=== PATIENT | female | born 1995 | race Caucasian/White ===

== ENCOUNTER 2020-06-02 15:55 | Emergency (ER) | payer OTHER, SELFPAY ==
--- NOTE | ~2020-06-02 | XR_ITS ---
EXAMINATION: XR finger 3rd LT min 2V DATE: 06/02/2020 16:33 INDICATION: Left hand third digit pain. TECHNIQUE: 3 views of left hand third digit were obtained. COMPARISON: None. FINDINGS: There is hyperextension of third distal interphalangeal joint. No fracture. Joint spaces ar e normal. IMPRESSION: 1. No fracture. Reviewed, dictated and finalized at location A. TRICIAN SUPERVISOR IMPRESSION: 1. No fracture.
[2020-06-02 15:59] VITALS: BP 130/58; PULSE 71; RESP 15; TEMP 36.6; O2SAT 100
[2020-06-02 18:24] VITALS: BP 128/56; PULSE 70; RESP 16; O2SAT 100
--- NOTE | 2020-06-02 20:50 | ED.GENADULT ---
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 Patient states she cannot recall a direct incident of injury. Patient has full range of motion to her finger but reports pain with range of motion. Patient denies any other injuries. Related Data Allergies Allergy/AdvReac Type Severity Reaction Status Date / Time No Known Allergies Allergy Verified 06/02/20 16:02 Review of Systems Review of Systems: Narrative: CONSTITUTIONAL: Denies fever, chills, or sweats. EYES: Denies visual changes, redness, or discharge. ENT: Denies rhinorrhea, congestion, sore throat, or otalgia. CARDIOVASCULAR: Denies chest pain, palpitations, or edema. RESPIRATORY: Denies cough or dyspnea. GASTROINTESTINAL: Denies abdominal pain, nausea, vomiting, or diarrhea. GENITOURINARY: Denies dysuria or hematuria. SKIN: Ecchymosis to the dorsal aspect of her left middle finger denies rash or itching. MUSCULOSKELETAL: Denies back pain, joint pain, or myalgia. NEUROLOGIC: Denies headache, numbness, dizziness, or weakness. PSYCHIATRIC: Denies anxiety or depression. PMFSH Social History Social History Smoking status: Never smoker Alcohol intake: never Gender identity (if verbalized by the patient): Female Exam Narrative: Exam Narrative: GENERAL: Well-appearing, well-nourished, and in no acute distress. HEAD: Normocephalic, atraumatic. EYES: PERRLA and EOMI. NECK: Supple. No adenopathy or masses. CHEST: Clear to auscultation. No respiratory distress. No wheezes rales or rhonchi HEART: Regular rate and rhythm. EXTREMITIES: Bruising to the dorsal aspect of the left middle finger. Range of motion intact. No bony tenderness. Normal range of motion. No edema. SKIN: Warm, dry, no rash. NEURO: No focal deficits. Alert and oriented x3. PSYCH: Normal mood and affect. Course Vital Signs Vital signs: Vital Signs Temperature 97.9 F 06/02/20 15:59 Pulse Rate 71 06/02/20 15:59 Respiratory Rate 15 06/02/20 15:59 Blood Pressure 130/58 L 06/02/20 15:59 Pulse Oximetry 100 06/02/20 15:59 Temperature 97.9 F 06/02/20 15:59 Pulse Rate 70 06/02/20 18:24 Respiratory Rate 16 06/02/20 18:24 Blood Pressure 128/56 L 06/02/20 18:24 Pulse Oximetry 100 06/02/20 18:24 Medical Decision Making MDM Narrative Medical decision making narrative: There is no sign of fracture. Patient will be treated his finger sprain. Patient instructed to wear finger splint when she is moving to avoid excessive use, but when she is at rest to remove the splint to avoid stiffness. Patient should've follow-up with her primary care for reevaluation if symptoms persist. Patient instructed to return to emergency department if she has any emergent symptoms. Differential Diagnosis Differential Diagnosis: Raynaud, abscess, fracture, sprain, strain Vital Signs Vital Signs: Vital Signs Temperature 97.9 F 06/02/20 15:59 Pulse Rate 71 06/02/20 15:59 Respiratory Rate 15 06/02/20 15:59 Blood Pressure 130/58 L 06/02/20 15:59 Pulse Oximetry 100 06/02/20 15:59 Temperature 97.9 F 06/02/20 15:59 Pulse Rate 70 06/02/20 18:24 Respiratory Rate 16 06/02/20 18:24 Blood Pressure 128/56 L 06/02/20 18:24 Pulse Oximetry 100 06/02/20 18:24 Imaging Data Radiologist's impression: ITS Impressions Finger X-Ray 06/02/20 16:40 IMPRESSION: 1. No fracture. Discharge Plan Discharge Clinical Impression: Other sprain of left middle finger, initial encounter Patient Disposition: Home, Self-Care Condition: Stable Instructions: Antibiotic Form, Finger Spr
== END 2020-06-02 18:24 | disposition home or self-care (01) ==
PROVIDERS: Emergency Provider Emergency Medicine; PCP Family Medicine
DX: S63.693A Other sprain of left middle finger, initial encounter (principal); X58.XXXA Exposure to other specified factors, initial encounter
CPT/HCPCS: 29130; 73140; 99283

== ENCOUNTER 2021-02-14 14:56 | Emergency (ER) | payer OTHER, SELFPAY ==
--- NOTE | ~2021-02-14 | US_ITS ---
EXAMINATION: US OB <= 14 weeks fetus EXAM DATE: 02/14/2021 16:49 INDICATION: Nausea and vomiting, 8 weeks 1st trimester. TECHNIQUE: Pelvic obstetrical transabdominal sonogram was performed by a technologist. There are mu ltiple grayscale and Doppler images available for interpretation. There are no earlier studies of th is gestation for comparison. FINDINGS: Uterus measures 9.3 x 6.7 x 7.2 cm. There is intrauterine gestation sac. pole with heart rate confirmed at 159 beats per minute. The 1.4 cm crown-rump length corresponds to estimated gestational age by ultrasound of 7 weeks 4 days, LACY 09/29/2021. Yolk sac is identified. There is n o sonographic evidence of subchorionic hemorrhage. Ovaries not identified. IMPRESSION: Early live intrauterine gestation, age by ultrasound 7 weeks 4 days. Reviewed, dictated and finalized at location A. IMPRESSION: Early live intrauterine gestation, age by ultrasound 7 weeks 4 days .
[2021-02-14 15:07] VITALS: BP 120/65; PULSE 86; RESP 18; TEMP 36.8; O2SAT 100
[2021-02-14 15:46] LABS: Basophils Percent Auto 0.3 % (0.2-1.2); Eosinophils Percent Auto 0.2 % (0-4.4); Hemoglobin 11.3 g/dL (12.0-15.0); Immature Granulocyte Absolute 0.05 K/mm3 (0.00-0.031); Immature Granulocyte Percent A 0.4 % (0-0.5); Lymphocytes Absolute Auto 1.86 K/mm3 (0.9-3.2); Lymphocytes Percent Auto 14.4 % (18.3-44.2); Mean Corpuscular HGB Conc 33.2 g/dl (32-36); Mean Corpuscular Hemoglobin 29.1 pg (26-34); Mean Corpuscular Volume 87.6 fl (80-100); Mean Platelet Volume 10.8 fl (7.4-10.4); Monocytes Absolute Auto 1.2 K/mm3 (0.1-0.6); Monocytes Percent Auto 8.9 % (2.6-8.5); Neutrophils Absolute Auto 9.8 K/mm3 (1.3-6.7); Neutrophils Percent Auto 75.8 % (45.5-73.1); Platelet Count Result 230 k/mm3 (150-375); Red Blood Count 3.88 M/mm3 (4.2-5.4); White Blood Count 12.9 K/mm3 (4.5-10.0)
[2021-02-14 16:06] LABS: Alanine Aminotransferase 25 U/L (4-35); Albumin Level 4.6 g/dL (3.5-5.1); Alkaline Phosphatase 83 U/L (38-126); Anion Gap 10 mmol/L (8-16); Aspartate Amino Transferase 23 U/L (14-36); Bilirubin,Total 0.3 mg/dL (0.2-1.3); Blood Urea Nitrogen 8 mg/dL (7-17); Calcium 9.2 mg/dL (8.4-10.2); Carbon Dioxide 21 mmol/L (22-30); Chloride 102 mmol/L (98-107); Estimated CRCL calculation 106 ml/min; Estimated Glomerular Filt Rate > 60; Glucose 74 mg/dL (65-110); Lipase 73 U/L (23-300); Potassium 3.8 mmol/L (3.4-5.0); Sodium 133 mmol/L (137-145)
--- NOTE | 2021-02-14 16:06 | ED.NAVMDI ---
HPI - Nausea/Vomiting/Diarrhea General Chief complaint: Nausea/Vomiting/Diarrhea <Nancy Jeff PA-C - Last Filed: 02/14/21 18:13> Stated complaint: 8 WKS PREG, VOMITING <Nancy Jeff PA-C - Last Filed: 02/14/21 18:13> Time Seen by Provider: 02/14/21 15:28 <Nancy Jeff PA-C - Last Filed: 02/14/21 18:13> Source: patient <Nancy Jeff PA-C - Last Filed: 02/14/21 18:13> Mode of arrival: ambulatory <Nnacy Jeff PA-C - Last Filed: 02/14/21 18:13> Limitations: no limitations <Nancy Jeff PA-C - Last Filed: 02/14/21 18:13> History of Present Illness HPI Narrative: This is a 25 year old , that presents to the ER for nausea and vomiting x3 weeks. Reports she is currently 8 weeks . Her OB is Dr. Geovani Bright, she has not seen him yet this . She has had a lot of trouble with morning sickness this . Reports she can hardly keep anything down. Denies fever, pelvic cramping, vaginal bleeding, or dysuria. <Nancy Jeff PA-C - Last Filed: 02/14/21 18:13> Related Data Allergies/Adverse reactions: Allergies Allergy/AdvReac Type Severity Reaction Status Date / Time No Known Allergies Allergy Verified 06/02/20 16:02 <Nancy Jeff PA-C - Last Filed: 02/14/21 18:13> Review of Systems Review of Systems: CONSTITUTIONAL: Denies fever GASTROINTESTINAL: Reports nausea and vomiting. Denies abdominal pain GENITOURINARY: Denies dysuria or hematuria. <Nancy Jeff PA-C - Last Filed: 02/14/21 18:13> All systems reviewed & are unremarkable except as noted in HPI and below <Nancy Jeff PA-C - Last Filed: 02/14/21 18:13> [facility] Past Medical History Medical History: Medical History (Updated 02/14/21 @ 18:12 by Nancy Jeff PA-C) No active medical problems <Nancy Jeff PA-C - Last Filed: 02/14/21 18:13> Social History Social History: Social History Smoking status: Never smoker Alcohol intake: never Gender identity (if verbalized by the patient): Female <Nancy Jeff PA-C - Last Filed: 02/14/21 18:13> Exam Narrative: GENERAL: Well-appearing, well-nourished, and in no acute distress. HEAD: Normocephalic, atraumatic. EYES: EOMI. CHEST: Clear to auscultation. No respiratory distress. No wheezes rales or rhonchi HEART: Regular rate and rhythm. No murmur heard. Normal peripheral pulses. ABDOMEN: Soft, nontender, nondistended, normal active bowel sounds. EXTREMITIES: Normal range of motion. No edema. SKIN: Warm, dry, no rash. NEURO: No focal deficits. Alert and oriented x3. PSYCH: Normal mood and affect <Nancy Jeff PA-C - Last Filed: 02/14/21 18:13> Course RAT TRAPPER/PA Physician Supervision I did not see this patient nor was the care plan discussed with me. I was available for evaluation and consultation, I agree with the documentation as above <Josh Mccollum MD - Last Filed: 02/14/21 20:26> Consultations Consultation #1: Spoke with Dr. Juan about patient and work-up who will follow up in clinic. <Nancy Jeff PA-C - Last Filed: 02/14/21 18:13> Date: 02/14/21 <Nancy Jeff PA-C - Last Filed: 02/14/21 18:13> Time: 18:11 <Nancy Jeff PA-C - Last Filed: 02/14/21 18:13> Vital Signs Vital signs: Vital Signs Temperature 36.8 C 02/14/21 15:07 Pulse Rate 86 02/14/21 15:07 Respiratory Rate 18 02/14/21 15:07 Blood Pressure 120/65 02/14/21 15:07 Pulse Oximetry 100 02/14/21 15:07 Temperature 36.8 C 02/14/21 15:07 Pulse Rate 86 02/14/21 15:07 Respiratory Rate 18 02/14/21 15:07 Blood Pressure 120/65 02/14/21 15:07 Pulse Oximetry 100 02/14/21 15:07 <Nancy Jeff PA-C - Last Filed: 02/14/21 18:13> Vital Signs Temperature 36.8 C 02/14/21 15:07 Pulse Rate 86 02/14/21 15:07 Respiratory Rate 18 02/14/21 15:07 Blood Pressure 120/65 02/14/21 15:07 Pulse Oximetry 100 02/14/21 15:07 Temp
[2021-02-14 16:22] LABS: Add Urine Microscopic? YES; Appearance Urine Clear (Clear); Bacteria Urine Trace /hpf; Bilirubin Urine Negative (Negative); Color Urine Yellow (Yellow); Glucose Urine UA Negative (Negative); Ketones Urine Trace mg/dL (Negative); Leukocyte Esterase Ur 2+ LEU/UL (Negative); Mucus Urine Few /lpf; Nitrate Urine Negative (Negative); Protein Urine 1+ mg/dL (Negative); Specific Grav Ur 1.024 (1.001-1.035); Squamous Epithelial Cell Urine Many /hpf (Few)
[2021-02-14 16:24] LABS: Blood Urine Negative (Negative)
[2021-02-14] MEDS: SODIUM CHLORIDE 0.9% IV 1,000 ML 999 ML IV CONT (17:00)
[2021-02-14] MEDS: diphenhydrAMINE HCl INJ 50 MG/ML VIAL 25 MG IV PUSH (17:01)
[2021-02-14] MEDS: METOCLOPRAMIDE HCL INJ 10 MG/2 ML VIAL IV PUSH (17:02)
== END 2021-02-14 18:45 | disposition home or self-care (01) ==
PROVIDERS: Physician Assistant; Emergency Provider Emergency Medicine; PCP Family Medicine
DX: O21.9 Vomiting of pregnancy, unspecified (principal); Z3A.01 Less than 8 weeks gestation of pregnancy; R82.998 Other abnormal findings in urine
CPT/HCPCS: 36415; 76801; 80053; 81001; 81025; 83690; 84702; 85025; 87086; 96361; 96374; 96375; 99284; J1200; J2765; J7030

== ENCOUNTER 2021-07-13 10:32 | Observation (INO) | payer OTHER, SELFPAY ==
[2021-07-13 10:45] VITALS: BMI 25.7
[2021-07-13 10:53] VITALS: BP 109/60; PULSE 97
[2021-07-13 11:00] VITALS: BP 111/60; PULSE 91
[2021-07-13 11:13] LABS: Add Urine Microscopic? YES; Appearance Urine Cloudy (Clear); Bacteria Urine 1+ /hpf; Bilirubin Urine Negative (Negative); Blood Urine Negative (Negative); Color Urine Yellow (Yellow); Glucose Urine UA Negative (Negative); Ketones Urine Negative (Negative); Leukocyte Esterase Ur 2+ LEU/UL (Negative); Mucus Urine Rare /lpf; Nitrate Urine Negative (Negative); Protein Urine Negative (Negative); Squamous Epithelial Cell Urine Many /hpf (Few); Urobilinogen Urine Negative mg/dL (<2.0)
[2021-07-13 11:16] VITALS: BP 100/59; PULSE 76
[2021-07-13 11:30] VITALS: BP 105/59; PULSE 81
[2021-07-13 11:45] VITALS: BP 102/56; PULSE 69
[2021-07-13 12:00] VITALS: BP 107/56; PULSE 81
--- NOTE | 2021-07-13 12:20 | PC.NURSE ---
Dr. Lerner at unit notified pt admission and UA result. Dr. Lerner reviewed strip in unit. okay to discharge.
--- NOTE | 2021-07-13 13:51 | PM.OBTRLD ---
OB - Triage/Final Diagnosis Visit Information Reason for evaluation: threatened labor Comments/Additional reasons for admission: I have assessed the risk for this patient, Evita Kincaid, and determined that she would benefit from observation care. Evaluation Laboratory results: Laboratory Tests 07/13/21 10:58 Urine Color Yellow Urine Appearance Cloudy H Urine pH 6.0 Ur Specific Oriental 1.020 Urine Protein Negative Urine Glucose (UA) Negative Urine Ketones Negative Ur Blood (Man) Negative Urine Nitrate Negative Urine Bilirubin Negative Urine Urobilinogen Negative Leukocyte Esterase Rfl 2+ H Urine RBC 11-20 H Urine WBC 10-15 H Ur Squamous Epith Cells Many H Urine Bacteria 1+ H Urine Mucus Rare Vital signs: Vital Signs - 24 hr 07/13/21 10:53 07/13/21 11:00 07/13/21 11:16 Pulse Rate 97 91 76 Blood Pressure 109/60 111/60 100/59 L 07/13/21 11:30 07/13/21 11:45 07/13/21 12:00 Pulse Rate 81 69 81 Blood Pressure 105/59 L 102/56 L 107/56 L
== END 2021-07-13 12:26 | disposition home or self-care (01) ==
PROVIDERS: Admitting Provider Obstetrics & Gynecology; PCP Family Medicine; Visit Provider Obstetrics & Gynecology
DX: O47.02 False labor before 37 completed weeks of gestation, second trimester (principal); Z3A.29 29 weeks gestation of pregnancy
CPT/HCPCS: 81001; 87086; G0378; G0379

== ENCOUNTER 2021-09-17 06:25 | Inpatient (IN) | payer OTHER, SELFPAY ==
[2021-09-17] VITALS (172 sets, daily range): BP systolic 97–139; BP diastolic 32–99; PULSE 54–116; RESP 16; TEMP 36.7–37.5; O2SAT 95–100; BMI 29.9
--- NOTE | 2021-09-17 06:25 | LDADM ---
This patient, Evita Kincaid, was admitted to Labor/Delivery/Recovery 104 on 09/17/21 at 06:25. Plans for labor, pain management and were discussed with patient. Patient/family oriented to hospital policies and general routines including ID bracelet, bed and alarms, visiting hours, pain management, procedures, bathroom and other care routines, personal items, smoking policy, room service/diet and guest tray routines, infant security routines, and visiting hours. Patient/Family are encouraged to report perceived risks to care and to ask questions if they do not understand what they are told or what they should do. See OBIX for further documentation.
--- NOTE | 2021-09-17 06:59 | PM.IMHP ---
H&P: HPI History of Present Illness Date/Time: 09/17/21 06:59 26-year-old 2 para 1 whose last menstrual period was 12/22/2020, EDC is 09/23/2021, presents at 39 weeks gestation for induction of labor. Her cervix is favorable she has had an unremarkable . She is negative for group B strep risks and benefits reviewed. Chief Complaint: induction of labor at term Review of Systems Review of Systems: All systems reviewed & are unremarkable except as noted in HPI and below PMFSH Past Medical History Medical History No active medical problems Family History Family History Mother Kidney failure Social History Social History Smoking status: Never smoker Alcohol intake: never Substance use: never Gender identity (if verbalized by the patient): Female Spiritual care concerns: No Meds Home Medications and Allergies Home Medications Medication Instructions Recorded Confirmed Type metoclopramide HCl 5 mg PO Q8H #10 tablet 02/14/21 Rx Allergies Allergy/AdvReac Type Severity Reaction Status Date / Time No Known Allergies Allergy Verified 08/24/21 13:26 Vital Signs Vital Signs - 24 hr 09/17/21 06:56 Pulse Rate 99 Blood Pressure 117/86 Exam Const: General: no acute distress Eyes: General: appearance normal, both eyes and all related structures Neck: Neck: supple and no JVD Thyroid: thyroid normal Resp: Effort & Inspection: normal respiratory effort Auscultation: clear to auscultation bilaterally Cardio: Rate: regular rate Rhythm: regular rhythm GI: Inspection: non-distended GI Palp: Yes Soft to palpation, No Tenderness to palpation present (GI) and No Guarding due to palpation present (GI) Auscultation: normal bowel sounds : External Female Exam: normal external appearance Speculum Exam - Vagina: normal appearance of the vagina Speculum Exam - Cervix: Cervical os closed ( Cervix 2/80/1. AROM clear. FHTs were reassuring) Bimanual Exam- Adnexa, other: normal adnexae Skin: General skin exam: no rashes or lesions noted Extrem: General: normal to inspection and no edema Psych: Mental Status: mental status grossly normal Affect: normal affect Assessment and Plan Additional Plan Impression: Term with favorable cervix Plan medical lateral labor. Spontaneous vaginal delivery expected. She has an epidural candidate
[2021-09-17] MEDS: LACTATED RINGERS 1,000 ML 125 ML IV CONT ×3 (07:07→15:06)
[2021-09-17] MEDS: OXYTOCIN 30 UNITS/NS 500 ML 30 UNITS/500 ML BAG IV CONT (07:08)
[2021-09-17 07:14] LABS: Basophils Absolute Auto 0.1 K/mm3 (0.0-0.1); Basophils Percent Auto 0.7 % (0.2-1.2); Eosinophils Absolute Auto 0.1 K/mm3 (0-0.3); Eosinophils Percent Auto 0.9 % (0-4.4); Hemoglobin 11.2 g/dL (12.0-15.0); Immature Granulocyte Absolute 0.29 K/mm3 (0.00-0.031); Immature Granulocyte Percent A 2.1 % (0-0.5); Lymphocytes Percent Auto 18.4 % (18.3-44.2); Mean Corpuscular Hemoglobin 27.7 pg (26-34); Mean Corpuscular Volume 86.6 fl (80-100); Mean Platelet Volume 12.3 fl (7.4-10.4); Monocytes Absolute Auto 1.1 K/mm3 (0.1-0.6); Monocytes Percent Auto 8.4 % (2.6-8.5); Neutrophils Absolute Auto 9.4 K/mm3 (1.3-6.7); Neutrophils Percent Auto 69.5 % (45.5-73.1); Platelet Count Result 211 k/mm3 (150-375); Red Blood Count 4.04 M/mm3 (4.2-5.4); Red Cell Distribution Width 13.8 % (11.5-14.5); White Blood Count 13.6 K/mm3 (4.5-10.0)
--- NOTE | 2021-09-17 10:37 | WPDANESEPPF ---
Anes - Initial Pre Proc Eval Procedure: labor epidural Date/Time: 09/17/21 10:37 Surgeon: Kenroy Bright MD Pre Op Diagnosis: labor pain Pre Op Diagnosis: IOL Patient Data Age: 26 Gender: F Height: 1.63 m Weight: 79 kg Last Vital Signs Temp 36.7 C 09/17/21 09:16 Pulse 66 09/17/21 10:30 BP 108/43 L 09/17/21 10:30 Pulse Ox 99 09/17/21 10:33 Allergies Allergy/AdvReac Type Severity Reaction Status Date / Time No Known Allergies Allergy Verified 08/24/21 13:26 Home Medications Medication Instructions Recorded Confirmed Type prenat.vits,eduarda,eur-cqut-abovy 1 tablet PO DAILY 09/17/21 09/17/21 History [ Vitamin] Laboratory Tests 09/17/21 09/17/21 09/17/21 07:05 07:05 07:05 WBC 13.6 K/mm3 H K/mm3 (4.5-10.0) RBC 4.04 M/mm3 L M/mm3 (4.2-5.4) Hgb 11.2 g/dL L g/dL (12.0-15.0) Hct 35.0 % L % (37.0-47.0) MCV 86.6 fl fl (80-100) MCH 27.7 pg pg (26-34) MCHC 32.0 g/dl g/dl (32-36) RDW 13.8 % % (11.5-14.5) Plt Count 211 k/mm3 k/mm3 (150-375) MPV 12.3 fl H fl (7.4-10.4) Immature Gran % (Auto) 2.1 % H % (0-0.5) Neut % (Auto) 69.5 % % (45.5-73.1) Lymph % (Auto) 18.4 % % (18.3-44.2) Henry % (Auto) 8.4 % % (2.6-8.5) Eos % (Auto) 0.9 % % (0-4.4) Baso % (Auto) 0.7 % % (0.2-1.2) Lymph # (Auto) 2.50 K/mm3 K/mm3 (0.9-3.2) Henry # (Auto) 1.1 K/mm3 H K/mm3 (0.1-0.6) Eos # (Auto) 0.1 K/mm3 K/mm3 (0-0.3) Baso # (Auto) 0.1 K/mm3 K/mm3 (0.0-0.1) Abs Immat Gran (auto) 0.29 K/mm3 H K/mm3 (0.00-0.031) Absolute Neuts (auto) 9.4 K/mm3 H K/mm3 (1.3-6.7) Absolute Nucleated RBC 0.0 K/mm3 K/mm3 (0.0-0.012) Nucleated RBC % 0.0 % % (0.0-0.2) RPR Pending Blood Type O Positive Antibody Screen Negative Patient hx anesthesia problems: none Family hx anesthesia problems: none Results Review: All pre-operative results and documents have been reviewed as part of the pre-operative evaluation. [facility] Past Medical History Medical History No active medical problems Family History Family History Mother Kidney failure Social History Social History Smoking status: Never smoker Alcohol intake: never Substance use: never Gender identity (if verbalized by the patient): Female Spiritual care concerns: No Anes - Eval Final PreProcedure Day of Procedure 09/17/21 10:37 Patient weight: overweight ASA classification: II Anesthesia type and monitoring: regional epidural and standard monitoring Results Review: All pre-operative results and documents have been reviewed as part of the pre-operative evaluation. Informed Consent: The patient's anesthetic plan and its attendant risks and benefits were discussed with the patient/family/POA. Questions were solicited and answers provided to the satisfaction of the patient/family/POA.
--- NOTE | 2021-09-17 12:09 | PM.OBPNLAB ---
Pain Control Date/time seen: 09/17/21 12:09 Pain control: tolerating well Pelvic Exam Dilation (cm): 2 Effacement (%): 80 Amniotic membrane status: Leaking Contractions Monitor mode: Internal
--- NOTE | 2021-09-17 18:15 | P.PCNOB_ITS ---
OB - Delivery Note Procedure Delivery date: 09/17/21 Procedure: mil Induction method: AROM Delivery augmentation: Pitocin Delivery monitor: External FHT and Internal Uterine Route of delivery: Episiotomy description: None Laceration Description: None Quantitative Blood Loss (ml): 59 Disposition: Floor [place] Baby Date of : 09/17/21 Time of : 18:09 Weeks of gestation at delivery: 39 presentation: vertex position: Right Occiput Anterior Placenta delivery description: Spontaneous Cord Vessel Description: 3 Vessels and Clamped/Cut score one minute: 8 score five minutes: 9
[2021-09-17] MEDS: OXYTOCIN 30 UNITS/NS 500 ML 30 UNITS/500 ML BAG 125 UNITS IV CONT (18:42)
[2021-09-17] MEDS: IBUPROFEN 600 MG TABLET PO (19:55)
[2021-09-17] MEDS: WITCH HAZEL 40 PADS 1 PAD TOPICAL (19:55)
[2021-09-17] MEDS: BENZOCAINE 20% AER SPR (*SP) 56 GM CAN 1 SPRAY TOPICAL (19:55)
--- NOTE | 2021-09-17 20:40 | OBPPTRN ---
Patient transferred to post room #291 via wheelchair. Support person present. Oriented to unit, room, information board, rooming in, admission packet and security measures. Patient verbalizes understanding. with patient.
[2021-09-17] MEDS: ACETAMINOPHEN 325 MG TABLET 650 MG PO (23:29)
[2021-09-18] MEDS: IBUPROFEN 600 MG TABLET PO ×3 (03:08→17:04)
[2021-09-18 03:15] VITALS: BP 104/61; PULSE 80; RESP 16; TEMP 36.8; O2SAT 96
[2021-09-18 05:19] LABS: Hematocrit 30.9 % (37.0-47.0); Hemoglobin 9.9 g/dL (12.0-15.0)
[2021-09-18 07:31] LABS: Rapid Plasma Reagin Non-Reactive (NonReactive)
--- NOTE | 2021-09-18 07:45 | PM.OBPNVD ---
OB - PN: Subj Subjective Date/time seen: 09/18/21 07:45 no complaints OB - PN: Obj Data Labs CBC & Chem 7: 09/18/21 03:25 Labs: Laboratory Results - last 24 hr 09/17/21 09/17/21 09/18/21 07:05 07:05 03:25 Hgb 9.9 L Hct 30.9 L RPR Non-reactive Blood Type O Positive Antibody Screen Negative OB - PN A/P Plan day: 1 Plan: routine care Time Spent With Patient Time: Total time spent is greater than 50% in coordination of care (as documented) at patient's floor/unit and/or counseling patient: Time with patient: less than 15 minutes Review of Systems Review of Systems: All systems reviewed & are unremarkable except as noted in HPI and below Exam Const: General: no acute distress Eyes: General: appearance normal, both eyes and all related structures Neck: Neck: supple and no JVD Thyroid: thyroid normal Resp: Effort & Inspection: normal respiratory effort Auscultation: clear to auscultation bilaterally Cardio: Rate: regular rate Rhythm: regular rhythm GI: Inspection: non-distended GI Palp: Yes Soft to palpation, No Tenderness to palpation present (GI) and No Guarding due to palpation present (GI) Auscultation: normal bowel sounds : General: Yes bladder normal to palpation External Female Exam: normal external appearance Speculum Exam - Vagina: normal vaginal discharge and No vaginal bleeding Speculum Exam - Cervix: nontender Bimanual exam- vagina & uterus: bladder normal to palpation and No Cervical tenderness present OB/external & speculum: No vaginal bleeding Skin: General skin exam: no rashes or lesions noted Extrem: General: normal to inspection and no edema Psych: Mental Status: mental status grossly normal Affect: normal affect
[2021-09-18 08:00] VITALS: BP 100/63; PULSE 70; RESP 18; TEMP 36.9
--- NOTE | 2021-09-18 08:01 | PM.DS ---
DS: Admitting Diagnosis Discharge Date Admitting Diagnosis term with favorable cervix DS: Summary Hospital Course Hospital Course: patient was admitted for induction labor she underwent spontaneous vaginal delivery which was unremarkable her 24hour course was unremarkable and she remained afebrile. She was up, voiding difficulty, ambulating, generally without complaints. Time Spent with Patient Time attestation: Total time spent providing and/or coordinating discharge services: Exam Const: General: no acute distress Eyes: General: appearance normal, both eyes and all related structures Neck: Neck: supple and no JVD Thyroid: thyroid normal Resp: Effort & Inspection: normal respiratory effort Auscultation: clear to auscultation bilaterally Cardio: Rate: regular rate Rhythm: regular rhythm GI: Inspection: non-distended GI Palp: Yes Soft to palpation, No Tenderness to palpation present (GI) and No Guarding due to palpation present (GI) Auscultation: normal bowel sounds : General: Yes bladder normal to palpation External Female Exam: normal external appearance Speculum Exam - Vagina: normal vaginal discharge and No vaginal bleeding Speculum Exam - Cervix: nontender Bimanual exam- vagina & uterus: bladder normal to palpation and No Cervical tenderness present OB/external & speculum: No vaginal bleeding Skin: General skin exam: no rashes or lesions noted Extrem: General: normal to inspection and no edema Psych: Mental Status: mental status grossly normal Affect: normal affect DS: Data Data Completed and Pending Labs on day of discharge: Labs from last 24 hours 09/18/21 09/17/21 09/17/21 03:25 07:05 07:05 Hgb 9.9 L Hct 30.9 L RPR Non-reactive Antibody Screen Negative Discharge Plan Discharge Attending physician on discharge: Kenroy Stark Discharging Clinician: Kenroy Stark Patient Disposition: Home, Self-Care Activity: no straining and pelvic rest Diet: heart healthy Wound Care Instructions: follow printed instructions Patient Instructions: Antibiotic Form Stand Alone Forms: General Discharge Information Follow-up/Referrals: Kenroy Stark MD [Physician] - Discharge Medications: No Action Vitamin Tablet 1 tablet PO DAILY RF: 0 Date of admission: 09/17/21 06:25 Primary Care Provider: Uli Olvera Admitting Provider: Kenroy Stark Attending physician on admission: Kenroy Stark Condition: Stable
[2021-09-18] MEDS: DOCUSATE SODIUM 100 MG CAPSULE PO ×2 (08:32→17:04)
[2021-09-18] MEDS: POLYSACCHARIDE IRON COMPLEX 150 MG CAPSULE PO ×2 (08:32→17:04)
--- NOTE | 2021-09-18 09:18 | WPDANLDPN2 ---
Anes-Prog Note L&D Date/Time: 09/18/21 09:18 Comfortable throughout: labor and delivery Neuraxial method: epidural Epidural/Spinal procedure site: clean & non-tender Neuro status: Neuro function grossly intact. Cardiovascular status: normal Respiratory status: normal Airway patency: baseline Mental status: baseline Post-Op hydration status: normal Vital Signs: Last Vital Signs Temp 98.4 F 09/18/21 08:00 Pulse 70 09/18/21 08:00 Resp 18 09/18/21 08:00 BP 100/63 09/18/21 08:00 Pulse Ox 96 09/18/21 03:15 Pain score (VAS): 0/10 I/O: Intake & Output 09/17/21 09/18/21 09/18/21 23:59 07:59 15:59 Intake Total 500 Output Total 131 Balance 369 Post-procedural complaints: none Patient feedback: Patient satisfied with anesthetic care.
[2021-09-18 12:30] VITALS: BP 104/54; PULSE 77; RESP 18; TEMP 36.8
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
[2021-09-18 16:55] VITALS: BP 110/66; PULSE 87; RESP 16
[2021-09-18] MEDS: TETANUS,DIPHTHERIA,AC PERTUSSIS ADULT (0.5 ML) BOOSTRIX IM (17:04)
[2021-09-19 08:48] VITALS: BP 122/85; PULSE 94; RESP 20; TEMP 36.6; O2SAT 98
== END 2021-09-18 20:04 | disposition home or self-care (01) | DRG 560 ==
LOC: ANHLDR 06:30 → ANHOB2 21:06
PROVIDERS: Admitting Provider Obstetrics & Gynecology; PCP Family Medicine; Visit Provider Obstetrics & Gynecology
DX: O36.8330 Maternal care for abnormalities of the fetal heart rate or rhythm, third trimester, not applicable or unspecified (principal); Z37.0 Single live birth; Z3A.39 39 weeks gestation of pregnancy
CPT/HCPCS: 36415; 85014; 85018; 85025; 86592; 86850; 86900; 86901; 90715; A9270; J2590; J2795; J7120

== ENCOUNTER 2021-11-09 23:52 | Emergency (ER) | payer OTHER, SELFPAY ==
[2021-11-09 23:55] VITALS: BP 115/51; PULSE 78; RESP 20; TEMP 36.6; O2SAT 100
--- NOTE | 2021-11-10 00:25 | ED.FEMALEGU ---
HPI - Female Genitourinary General Chief complaint: Urogenital-Female Stated complaint: vaginal pain Time Seen by Provider: 11/10/21 00:03 History of Present Illness HPI Narrative: Patient is a 26 year old female here for evaluation of vaginal itching and burning today that is associated with thick white discharge. She is sexually active but denies new sexual partners. Notes urinary frequency today but denies dysuria, hematuria, fevers, chills, abdominal pain. Denies antibiotic use recently. She had an uncomplicated vaginal delivery last month. Denies history of yeast infections or bacterial vaginosis. Related Data Allergies Allergy/AdvReac Type Severity Reaction Status Date / Time No Known Allergies Allergy Verified 11/09/21 23:53 Review of Systems Review of Systems: Gen.: Denies fevers or chills Eyes: Denies eye pain or visual change ENT: Denies congestion Respiratory: Denies shortness of breath or cough CV: Denies chest pain or palpitations GI: Denies abdominal pain nausea, emesis or diarrhea : Reports vaginal itching, irritation and white discharge Musculoskeletal: Denies back pain or muscle pain Neuro: Denies numbness, tingling, weakness or focal weakness Skin: Denies rash Except as documented, all other systems reviewed and negative [facility] Past Medical History Medical History No active medical problems Family History Family History Mother Kidney failure Social History Social History Smoking status: Never smoker Alcohol intake: never Substance use: never Gender identity (if verbalized by the patient): Female Spiritual care concerns: No Exam Narrative: Gen: Alert, oriented, no acute distress. Eyes: EOMI, no icterus Pulm: Respirations even and unlabored, symmetric thorax expansion, no audible stridor or visible cyanosis CV: Regular rate per telemetry GI: No abdominal tenderness. No distension, no voluntary/involuntary guarding : Exam performed with sales and management trainee Evita. No rashes to mons pubis, labia minora or labia majora. Moderate amount of thick, curd-like white discharge noted in vaginal vault. No cervical lesions. No cervical motion tenderness. No foreign body. Neuro: AOx4, moves all extremities without apparent difficulty or weakness, follows commands Skin: No jaundice, no visible bruising, rashes, lesions or wounds on exposed skin Psych: Normal mood/affect, insight/judgement good, adequate fund of knowledge, recent/remote memory intact Course Vital Signs Vital signs: Vital Signs Temperature 97.9 F 11/09/21 23:55 Pulse Rate 78 11/09/21 23:55 Respiratory Rate 20 11/09/21 23:55 Blood Pressure 115/51 L 11/09/21 23:55 Pulse Oximetry 100 11/09/21 23:55 Temperature 97.9 F 11/09/21 23:55 Pulse Rate 81 11/10/21 01:08 Respiratory Rate 14 11/10/21 01:08 Blood Pressure 122/79 11/10/21 01:08 Pulse Oximetry 94 11/10/21 01:08 MDM - Female Genitourinary MDM Narrative Medical decision making narrative: 26-year-old female here for evaluation of vaginal irritation and thick white discharge today. Patient's vital signs are normal, she has nontoxic-appearing. Her exam reveals a moderate amount of thick white discharge in the vaginal vault, correlating with patient's symptoms of itchiness this is likely a yeast infection. No fevers or CMT to suggest PID. UA negative for UTI or , does show evidence of microscopic hematuria but patient only having frequency and no having flank pain, fever, dysuria. Recommended outpatient followup. Will send swabs for infection but treat prophylactically with Diflucan. Lab Data Labs: Lab Results 11/10/21 11/10/21 11/10/21 Range/Units 00:28 00:28 00:32 Urine Color Yellow (Yellow) Urine Appearance Clear (Clear) Urine pH 5.5
[2021-11-10 00:40] LABS: Appearance Urine Clear (Clear); Bilirubin Urine Negative (Negative); Blood Urine 3+ (Negative); Color Urine Yellow (Yellow); Glucose Urine UA Negative (Negative); Ketones Urine Negative (Negative); Leukocyte Esterase Ur Negative LEU/UL (Negative); Nitrate Urine Negative (Negative); Protein Urine Trace mg/dL (Negative); Specific Grav Ur >= 1.030 (1.001-1.035); Urobilinogen Urine 0.2 mg/dL (<2.0); pH Urine 5.5 (5.0-9.0)
[2021-11-10] MEDS: FLUCONAZOLE 150 MG TABLET PO (00:47)
[2021-11-10 00:52] LABS: Add Urine Microscopic? YES; Mucus Urine Rare /lpf; RBC Urine >75 /hpf (0-2); Squamous Epithelial Cell Urine Rare /hpf (Few)
[2021-11-10 01:08] VITALS: BP 122/79; PULSE 81; RESP 14; O2SAT 94
== END 2021-11-10 01:08 | disposition home or self-care (01) ==
PROVIDERS: Physician Assistant; Emergency Provider Emergency Medicine; PCP Family Medicine
DX: B37.3 Candidiasis of vulva and vagina (principal)
CPT/HCPCS: 81001; 81025; 87070; 87491; 87591; 87808; 99284; A9270

== ENCOUNTER 2022-03-12 16:23 | Emergency (ER) | payer OTHER, SELFPAY ==
[2022-03-12 16:29] VITALS: BP 117/64; PULSE 88; RESP 16; TEMP 36.4; O2SAT 100
--- NOTE | 2022-03-12 18:13 | ED.GENADULT ---
HPI - General Adult General Chief complaint: Vaginal Bleeding Stated complaint: ?miscarriage Time Seen by Provider: 03/12/22 17:57 History of Present Illness HPI narrative: This is a 26-year-old female presenting ED with 1 day of vaginal bleeding. Patient's last period ended on March 01. Yesterday she noticed that she had some grayish brown discharge. She also noticed some brownish discharge in her underwear this morning. It is very light And has not required menstrual pads. Patient denies abdominal pain. She denies urinary symptoms. She is monogamous with 1 partner and they use protection. She is not concerned about STDs at this time. She denies irritation or a foul smell. Related Data Allergies Allergy/AdvReac Type Severity Reaction Status Date / Time No Known Allergies Allergy Verified 11/09/21 23:53 Review of Systems Review of Systems: CONSTITUTIONAL: Denies night sweats. EYES: No eye pain ENT: Denies rhinorrhea CARDIOVASCULAR: Denies palpitations RESPIRATORY: Denies hemoptysis GASTROINTESTINAL: Denies hematemesis GENITOURINARY: Denies hematuria. SKIN: Denies rash MUSCULOSKELETAL: Denies myalgia. NEUROLOGIC: Denies weakness. PSYCHIATRIC: Denies delusions [facility] Past Medical History Medical History No active medical problems Family History Family History Mother Kidney failure Social History Social History Smoking status: Never smoker Alcohol intake: never Substance use: never Gender identity (if verbalized by the patient): Female Spiritual care concerns: No Exam Narrative: APPEARANCE: No apparent distress. Head atraumatic. EYES: PERRLA/EOMI, NOSE: Normal no drainage NECK: Supple, Trachea midline RESPIRATORY: CTAB, No increased work of breathing. CARDIOVASCULAR: S1S2 appreciated ABDOMINAL: Soft, nontender, nondistended, MUSCULOSKELETAl: No obvious deformities NEURO: Alert. Moving 4/4 extremities SKIN:: Warm, dry. Normal color PSYCHIATRIC: Normal affect Course Vital Signs Vital signs: Vital Signs Temperature 97.6 F 03/12/22 16:29 Pulse Rate 88 03/12/22 16:29 Respiratory Rate 16 03/12/22 16:29 Blood Pressure 117/64 03/12/22 16:29 Pulse Oximetry 100 03/12/22 16:29 Oxygen Delivery Room Air 03/12/22 16:29 Temperature 97.6 F 03/12/22 16:29 Pulse Rate 88 03/12/22 16:29 Respiratory Rate 16 03/12/22 16:29 Blood Pressure 117/64 03/12/22 16:29 Pulse Oximetry 100 03/12/22 16:29 Oxygen Delivery Room Air 03/12/22 16:29 Medical Decision Making MDM Narrative Medical decision making narrative: This is a 26-year-old female presenting ED with 1 day of light vaginal spotting. Her test was negative. A UA has been ordered. UA was not indicative of UTI. Pelvic exam revealed some blood in the cervical os and dark brown mucus in the vaginal vault. No cervical motion tenderness or adnexal fullness. Swabs were taken for gonorrhea chlamydia and Trichomonas. Patient will be treated empirically for bacterial vaginosis. She has been instructed to follow-up with her primary care physician. We will call her with any abnormal cervical swabs. Vital Signs Vital Signs: Vital Signs Temperature 97.6 F 03/12/22 16:29 Pulse Rate 88 03/12/22 16:29 Respiratory Rate 16 03/12/22 16:29 Blood Pressure 117/64 03/12/22 16:29 Pulse Oximetry 100 03/12/22 16:29 Oxygen Delivery Room Air 03/12/22 16:29 Temperature 97.6 F 03/12/22 16:29 Pulse Rate 88 03/12/22 16:29 Respiratory Rate 16 03/12/22 16:29 Blood Pressure 117/64 03/12/22 16:29 Pulse Oximetry 100 03/12/22 16:29 Oxygen Delivery Room Air 03/12/22 16:29 Lab Data Labs: Lab Results 03/12/22 Range/Units 18:20 Urine Color Yellow (Yellow) Urine Appe
[2022-03-12 18:29] LABS: Add Urine Microscopic? YES; Appearance Urine Clear (Clear); Bilirubin Urine Negative (Negative); Blood Urine 2+ (Negative); Color Urine Yellow (Yellow); Glucose Urine UA Negative (Negative); Ketones Urine Negative (Negative); Leukocyte Esterase Ur Negative LEU/UL (Negative); Mucus Urine Rare /lpf; Nitrate Urine Negative (Negative); Protein Urine Negative (Negative); Specific Grav Ur 1.028 (1.001-1.035); Squamous Epithelial Cell Urine Occasional /hpf (Few); WBC Urine 0-3 /hpf
== END 2022-03-12 19:36 | disposition home or self-care (01) ==
PROVIDERS: Emergency Provider Emergency Medicine; PCP Family Medicine
DX: N76.0 Acute vaginitis (principal); N93.9 Abnormal uterine and vaginal bleeding, unspecified
CPT/HCPCS: 81001; 81025; 87491; 87591; 87808; 99284

== ENCOUNTER 2022-06-17 19:52 | Emergency (ER) | payer OTHER, SELFPAY ==
[2022-06-17 19:53] VITALS: BP 132/79; PULSE 102; RESP 15; TEMP 36.2; O2SAT 100
[2022-06-17 20:11] LABS: Basophils Percent Auto 0.4 % (0.2-1.2); Eosinophils Percent Auto 0.4 % (0-4.4); Hematocrit 41.5 % (37.0-47.0); Hemoglobin 13.3 g/dL (12.0-15.0); Immature Granulocyte Absolute 0.06 K/mm3 (0.00-0.031); Immature Granulocyte Percent A 0.6 % (0-0.5); Lymphocytes Absolute Auto 1.58 K/mm3 (0.9-3.2); Lymphocytes Percent Auto 15.1 % (18.3-44.2); Mean Corpuscular Hemoglobin 27.6 pg (26-34); Mean Corpuscular Volume 86.1 fl (80-100); Mean Platelet Volume 10.8 fl (7.4-10.4); Monocytes Absolute Auto 0.9 K/mm3 (0.1-0.6); Neutrophils Absolute Auto 7.8 K/mm3 (1.3-6.7); Neutrophils Percent Auto 74.5 % (45.5-73.1); Platelet Count Result 281 k/mm3 (150-375); Red Blood Count 4.82 M/mm3 (4.2-5.4); Red Cell Distribution Width 13.6 % (11.5-14.5); White Blood Count 10.5 K/mm3 (4.5-10.0)
[2022-06-17 20:17] LABS: Appearance Urine Clear (Clear); Bilirubin Urine Negative (Negative); Blood Urine Trace-intact (Negative); Color Urine Yellow (Yellow); Glucose Urine UA Negative (Negative); Ketones Urine Negative (Negative); Leukocyte Esterase Ur Negative LEU/UL (Negative); Nitrate Urine Negative (Negative); Protein Urine Negative (Negative); Specific Grav Ur 1.025 (1.001-1.035)
[2022-06-17] MEDS: SODIUM CHLORIDE 0.9% IV 1,000 ML 999 ML IV CONT (20:17)
[2022-06-17] MEDS: ONDANSETRON INJ 4 MG/2 ML VIAL IV PUSH (20:17)
--- NOTE | 2022-06-17 20:18 | ED.RECABL ---
HPI - Recheck/Abnormal Lab/Rx General Chief Complaint: Recheck/Abnormal Lab/Rx Stated Complaint: nausea Time Seen by Provider: 06/17/22 19:55 History of Present Illness HPI narrative: 27-year-old female presents to the emergency room for evaluation of nausea vomiting, body aches and headache. Patient states 2 days ago she was seen at [place] emergency room where she was diagnosed with strep throat. Patient was placed on amoxicillin at that time. Yesterday she was seen at urgent care because her urine was a dark yellow. Patient was told that there was protein in her urine and she needed to follow-up with her regular doctor. Related Data Allergies Allergy/AdvReac Type Severity Reaction Status Date / Time No Known Allergies Allergy Verified 11/09/21 23:53 Review of Systems Review of Systems: CONSTITUTIONAL: Denies fever, chills, or sweats. EYES: Denies visual changes, redness, or discharge. ENT: Reports sore throat CARDIOVASCULAR: Denies chest pain, palpitations, or edema. RESPIRATORY: Denies cough or dyspnea. GASTROINTESTINAL: Reports nausea vomiting GENITOURINARY: Denies dysuria or hematuria. SKIN: Denies rash or itching. MUSCULOSKELETAL: Denies back pain, joint pain, or myalgia. NEUROLOGIC: Denies headache, numbness, dizziness, or weakness. PSYCHIATRIC: Denies anxiety or depression. [facility] Past Medical History Medical History No active medical problems Family History Family History Mother Kidney failure Social History Social History Smoking status: Never smoker Alcohol intake: never Substance use: never Gender identity (if verbalized by the patient): Female Spiritual care concerns: No Exam Narrative: GENERAL: Well-appearing, well-nourished, no physical limitations, and in no acute distress. HEAD: Normocephalic, atraumatic. EYES: Conjunctivae normal, PERRLA and EOMI. ENT: External nose normal, Nares clear, no rhinorrhea or epistaxis. Mucous membranes dry. Oropharynx with tonsillar hypertrophy and exudate. NECK: Supple. No adenopathy or masses. CHEST: Clear to auscultation. No respiratory distress. No wheezes rales or rhonchi. HEART: Regular rate and rhythm. No murmur heard. Normal peripheral pulses. ABDOMEN: Soft, nontender, nondistended, normal active bowel sounds. BACK: No CVA tenderness EXTREMITIES: Normal range of motion. No edema. No clubbing or cyanosis SKIN: Warm, dry, no rash. No noted wounds NEURO: No focal deficits. Alert and oriented x3. MAEW. CN's II-XI intact bilaterally, normal gait PSYCH: Cooperative. Normal mood and affect. Course Vital Signs Vital signs: Vital Signs Temperature 36.2 C L 06/17/22 19:53 Pulse Rate 102 H 06/17/22 19:53 Respiratory Rate 15 06/17/22 19:53 Blood Pressure 132/79 06/17/22 19:53 Pulse Oximetry 100 06/17/22 19:53 Temperature 36.2 C L 06/17/22 19:53 Pulse Rate 79 06/17/22 20:54 Respiratory Rate 16 06/17/22 20:54 Blood Pressure 132/79 06/17/22 19:53 Pulse Oximetry 100 06/17/22 20:54 MDM - Recheck/Abnormal Lab/Rx Lab Data 06/17/22 20:05 06/17/22 20:05 Labs: Lab Results 06/17/22 06/17/22 06/17/22 Range/Units 20:05 20:05 20:05 WBC 10.5 H (4.5-10.0) K/mm3 RBC 4.82 (4.2-5.4) M/mm3 Hgb 13.3 D (12.0-15.0) g/dL Hct 41.5 (37.0-47.0) % MCV 86.1 (80-100) fl MCH 27.6 (26-34) pg MCHC 32.0 (32-36) g/dl RDW 13.6 (11.5-14.5) % Plt Count 281 (150-375) k/mm3 MPV 10.8 H (7.4-10.4) fl Immature Gran % (Auto) 0.6 H (0-0.5) % Neut % (Auto) 74.5 H (45.5-73.1) % Lymph % (Auto) 15.1 L (18.3-44.2) % [place] % (Auto) 9.0 H (2.6-8.5) % Eos % (Auto) 0.4 (0-4.4) % Baso % (Auto) 0.4 (0.2-1.2) % Lymph # (Auto) 1.58 (0.9-3.2) K/mm3 [place] # (Auto) 0.
[2022-06-17 20:19] LABS: Pregnancy On Board Control Positive; Urine Pregnancy Test Negative
[2022-06-17 20:22] LABS: Alanine Aminotransferase 107 U/L (6-35); Albumin Level 4.4 g/dL (3.5-5.1); Alkaline Phosphatase 187 U/L (38-126); Anion Gap 11 mmol/L (8-16); Aspartate Amino Transferase 44 U/L (14-36); Bilirubin,Total 0.6 mg/dL (0.2-1.3); Blood Urea Nitrogen 12 mg/dL (7-17); Calcium 8.8 mg/dL (8.4-10.2); Carbon Dioxide 26 mmol/L (22-30); Chloride 104 mmol/L (98-107); Estimated CRCL calculation 104 ml/min; Estimated Glomerular Filt Rate > 60; Glucose 101 mg/dL (65-110); Lipase 123 U/L (23-300); Potassium 3.6 mmol/L (3.4-5.0); Sodium 141 mmol/L (137-145)
[2022-06-17 20:24] LABS: Bacteria Urine Trace /hpf; Mucus Urine Moderate /lpf; Squamous Epithelial Cell Urine Rare /hpf (Few); WBC Urine 0-3 /hpf
[2022-06-17 20:25] LABS: Add Urine Microscopic? YES
[2022-06-17 20:54] VITALS: PULSE 79; RESP 16; O2SAT 100
== END 2022-06-17 21:05 | disposition home or self-care (01) ==
PROVIDERS: Emergency Provider Nurse Practitioner Family
DX: R11.0 Nausea (principal)
CPT/HCPCS: 36415; 80053; 81001; 81025; 83690; 85025; 96361; 96374; 99284; J2405; J7030

== ENCOUNTER 2022-11-25 15:09 | Outpatient (CLI) | payer OTHER, SELFPAY ==
[2022-11-25 15:39] LABS: Hematocrit 37.2 % (37.0-47.0); Hemoglobin 11.9 g/dL (12.0-15.0)
== END 2022-11-25 15:10 | disposition home or self-care (01) ==
PROVIDERS: PCP Family Medicine; Visit Provider Obstetrics & Gynecology
DX: Z01.818 Encounter for other preprocedural examination (principal); N93.9 Abnormal uterine and vaginal bleeding, unspecified
CPT/HCPCS: 36415; 85014; 85018

== ENCOUNTER 2022-11-29 00:26 | Day surgery (SDC) | payer OTHER, SELFPAY ==
[2022-11-20 14:06] VITALS: BMI 24.0
--- NOTE | 2022-11-20 14:14 | SUR.PREOP ---
Report to the Outpatient Waiting Room, entrance under the green pavilion located off [facility], at time _0630 on date _11/29/22 . Planned Procedure Time: _829 . Time changes happen often and if your time is changed the preop area will call you the afternoon before. - You and your visitor will be asked to self-screen and do not enter if you have any COVID symptoms. - A mask is optional within the hospital at this time. Patients may have clear liquids (water, carbonated beverages, clear teas, apple juice) until 3 hours prior to surgery with a maximum of 20 ounces. - No food from midnight until time of surgery - Infants may have breast milk until 4 hours before surgery, infant formula 6 hours prior to surgery. - Children will be allowed to drink immediately following surgery. If applicable, please bring a bottle or sippy cup to assist with drinking. Juice, water, soda, and popsicles are readily available. For infants on formula, please bring formula the day of surgery. Pacifiers are allowed. Take the following medications with a SIP of water the morning of surgery: ___n/a DO NOT STOP ANY OF YOUR OTHER PRESCRIPTION MEDICATIONS PRIOR TO SURGERY ?EXCEPT THE FOLLOWING Medications to discontinue per physician n/a Date to take last dose__n/a Please no make-up, nail slovenian, hairspray, perfume, deodorant, or body powder the day of surgery. No jewelry (including any body piercings) or valuables the day of surgery, leave them at home. Please take a shower or bath the night before, or the morning of, surgery with an antibacterial soap. Wear comfortable, loose fitting clothing. Children are encouraged to wear pajamas. - Jewelry must be removed prior to entering the operating room. Rings and piercings that are not removed may be cut off. - The hospital will not accept responsibility for valuables. - Please leave all valuables, including medications, at home the day of surgery. If you are going home after surgery, a licensed boom truck driver must drive you home. - NO public transportation without another adult if you receive anesthesia. - We recommend that an adult stay with you for 24 hours following discharge. - We also recommend that you do not drive, make important decision, drink alcoholic beverages, or take any drugs that were not prescribed by your health care provider for at least 24 hours after your discharge time. For Pediatric surgeries, we recommend two adults accompany the child home. Follow any additional instructions given to you from your surgeon. If you or anyone in your household have experienced Covid symptoms in the past week, please notify your surgeon or the nurse liaison at the phone number below for possible testing. Telephone instructions given to _carmen ann and asked if any additional questions and then verbalized understanding. Patient advised to call surgeon office or pre surgery nurse liaison [phone] if any additional questions.
--- NOTE | 2022-11-28 07:20 | PM.IMHP ---
H&P: HPI History of Present Illness Date/Time: 11/28/22 07:20 Chief Complaint: Sterilization and bleeding Narrative: this is a 27 year female who desires permanent irreversible sterilization. She will also undergo hysteroscopy D&C and polypectomy for suspected polyp. Alternatives including not exclusive of works pills patches injections implants were all reviewed. She understands this to be permanently and irreversible. Risks and benefits reviewed great detail. She received the [employer] handout entitled sterilization for men and women/hysteroscopy/ dilatation curettage. She had all questions answered and asked to proceed. FORMERLY [facility], [facility] Past Medical History Medical History BMI 23.0-23.9, adult No active medical problems Family History Family History Mother Kidney failure Father No problems noted. Sibling No problems noted. 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 Gender identity (if verbalized by the patient): Female Spiritual care concerns: No Meds Home Medications and Allergies Home Medications Medication Instructions Recorded Confirmed Type No Home Medications 11/20/22 11/20/22 History Allergies Allergy/AdvReac Type Severity Reaction Status Date / Time No Known Allergies Allergy Verified 11/20/22 13:51 Exam Const: General: cooperative, healthy appearing and comfortable Nutritional Appearance: average body habitus Orientation/consciousness: oriented to person, oriented to place and oriented to time Resp: Effort & Inspection: normal respiratory effort Cardio: Rate: regular rate Rhythm: regular rhythm Heart sounds: S1 normal heart sound present and S2 normal heart sound present GI: Inspection: normal to inspection : External Female Exam: normal external appearance Speculum Exam - Vagina: normal appearance of the vagina Speculum Exam - Cervix: normal appearance of the cervix Bimanual exam- vagina & uterus: uterine shape normal Bimanual Exam- Adnexa, other: normal adnexae Assessment and Plan Assessment and plan (1) Sterilization: Code(s): Z30.2 - Encounter for sterilization Status: Acute (2) Vaginal bleeding: Code(s): N93.9 - Abnormal uterine and vaginal bleeding, unspecified Status: Acute Plan proceed with laparoscopic tubal ligation/hysteroscopy/ dilatation curettage/probable polypectomy
[2022-11-29] VITALS (11 sets, daily range): BP systolic 98–120; BP diastolic 52–77; PULSE 51–83; RESP 14–20; TEMP 36.1–37.2; O2SAT 97–100; BMI 23.1
--- NOTE | 2022-11-29 00:02 | WPDHPUPDATE1 ---
History and Physical Update Update Date/Time: 11/29/22 00:02 History and Physical has been reviewed, including an updated exam of the patient. There are NO changes in the patient's condition. Risks, benefits, and alternatives have been discussed and questions answered. Patient agrees to proceed with procedure.
[2022-11-29] MEDS: LACTATED RINGERS 1,000 ML 30 ML IV CONT (07:00)
[2022-11-29] MEDS: ACETAMINOPHEN 500 MG TABLET 1000 MG PO (07:06)
[2022-11-29] MEDS: KETOROLAC 15 MG/ML VIAL (*BKC) IV PUSH (07:06)
[2022-11-29] MEDS: SCOPOLAMINE 1.5 MG PATCH TRANSDERM (07:13)
--- NOTE | 2022-11-29 07:29 | WPDANESEPPF ---
Anes - Initial Pre Proc Eval Procedure: Operation Date: 11/29/22 08:15 Proposed Procedures p Laparoscopic Tubal Sterilization with Rings - Kenroy Bright MD s Hysteroscopy Dilation and Curettage with Polypectomy - Kenroy Bright MD Date/Time: 11/29/22 07:29 Surgeon: Kenroy Bright MD Pre Op Diagnosis: polyp, irregular bleeding Patient Data Age: 27 Gender: F Height: 1.63 m Weight: 61.1 kg Last Vital Signs Temp 37.2 C 11/29/22 06:40 Pulse 68 11/29/22 06:40 Resp 14 11/29/22 06:40 BP 112/54 L 11/29/22 06:40 Pulse Ox 100 11/29/22 06:40 O2 Del Method Room Air 11/29/22 06:40 Allergies Allergy/AdvReac Type Severity Reaction Status Date / Time No Known Allergies Allergy Verified 11/29/22 06:47 Home Medications Medication Instructions Recorded Confirmed Type hydrocodone 5 mg-acetaminophen 325 1 tablet PO Q4H PRN pain #30 tabs 11/29/22 Rx mg tablet Patient hx anesthesia problems: none Family hx anesthesia problems: none Results Review: All pre-operative results and documents have been reviewed as part of the pre-operative evaluation. [facility] Past Medical History Medical History BMI 23.0-23.9, adult No active medical problems Family History Family History Mother Kidney failure Father No problems noted. Sibling No problems noted. 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 Gender identity (if verbalized by the patient): Female Spiritual care concerns: No Anes - Eval Final PreProcedure Day of Procedure 11/29/22 07:29 Patient weight: normal Heart: regular rate and rhythm Lungs: clear to auscultation Airway: Mallampati scale class II Neurological: alert and oriented Last oral intake: >/= 8 hours ASA classification: I Emergent: no Anesthetic plan: proceed Anesthesia type and monitoring: general ETT and standard monitoring Results Review: All pre-operative results and documents have been reviewed as part of the pre-operative evaluation. Informed Consent: The patient's anesthetic plan and its attendant risks and benefits were discussed with the patient/family/POA. Questions were solicited and answers provided to the satisfaction of the patient/family/POA.
--- NOTE | 2022-11-29 09:39 | P.OP_ITS ---
Procedure Note - Detailed Date of Procedure 11/29/22 Pre-op Diagnosis polyp, irregular bleeding /sterilization Post-op Diagnosis Other (Endometriosis /uterine polyp /sterilization) Procedure Performed laparoscopic bilateral tubal ligation with rings. Hysteroscopy. Dilatation curettage polypectomy. Destruction of endometriosis Surgeon Kenroy Bright MD Anesthesia General Indications this is a 27-year-old female who desires permanent sterilization with irregular bleeding Findings on laparoscopy normal-appearing uterus with multiple areas of endometriosis and powder burn fashion on the right left uterosacral ligament. On hysteroscopy small uterine polyp was seen in the anterior abdominal. Description of Procedure Patient was prepped draped in the normal sterile fashion placed in dorsal lithotomy position. Under excellent general trach anesthesia weighted speculum placed posterior fornix vagina. Anterior lip of the cervix grasped with single- tooth tenaculum. The Kurtz's cannula inserted to the single-tooth and attached to the the Kurtz's cannula to be used later for uterine ablation. Bladder emptied of clear urine the weighted speculum was removed. Gloves were changed. An infraumbilical incision made the Veress needle passed in the abdomen. Abdomen filled with CO2 gas [id number]. 5mm trocar advanced under direct visualization assuring no injury. Patient placed in Trendelenburg and a suprapubic incision made. The 8mm trocar advanced under direct visualization assuring no injury. The left and right fallopian tubes were grasped in midportion with the fallopian rings. Inspection of the cul-de-sac showed multiple areas of endometriosis. The monopolar cautery was placed at 35 w per 2nd these were desiccated. Photo documentation undertaken the fallopian tubes appeared to be blanched well. The appendix liver gallbladder all appeared within normal limits. The fluid that was in the pelvis was about 20cc and this was suction. The gas removed from the abdomen. The trocars removed and the incisions closed with 4 Monocryl and glue. Attention was turned to the hysteroscopic portion. Uterus sounded to 8cm. Serial dilatation with fragmented dilators performed followed by the of the tail hysteroscope using normal saline as visualizing medium. Small polyp was seen anterior. Using the V does system the uterus was scraped over the entire 60? 360? removing the polyp as well. The instruments were withdrawn and blood loss estimated at 5cc. All sponge, needle, instrument counts were correct. There were no immediate complications noted Estimated Blood Loss 5 Drains No Packing No Pathology Yes Complications No immediate complications Condition Stable Disposition PACU
[2022-11-29] MEDS: HYDROmorphone HCL INJ (*CRX) 1 MG/ML SYR 0.25 MG IV PUSH ×2 (09:58→10:03)
[2022-11-29] MEDS: oxyCODONE HCL (*CRX) 5 MG TAB IR PO (10:53)
== END 2022-11-29 12:24 | disposition home or self-care (01) ==
PROVIDERS: PCP Family Medicine; Visit Provider Obstetrics & Gynecology
PROC: (CPT 58671; principal; 2022-11-29 08:15)
PROC: 0U5B8ZZ Destruction of Endometrium, Via Natural or Artificial Opening Endoscopic (ICD-10-PCS; CPT 58563; 2022-11-29 08:15)
DX: N93.9 Abnormal uterine and vaginal bleeding, unspecified (principal); N84.0 Polyp of corpus uteri; Z30.2 Encounter for sterilization; N80.3C3 Endometriosis of bilateral uterosacral ligament(s), unspecified depth
CPT/HCPCS: 58671; 58662; 58558; 88305; A4264; A9270; J0330; J1100; J1170; J1200; J1885; J2250; J2405; J2704; J3010; J7120

== ENCOUNTER 2022-12-08 01:18 | Emergency (ER) | payer OTHER, SELFPAY ==
[2022-12-08] VITALS (14 sets, daily range): BP systolic 114–121; BP diastolic 66–78; PULSE 92–130; RESP 13–25; TEMP 37.4; O2SAT 97–100
--- NOTE | ~2022-12-08 | XR_ITS ---
XR chest 1V portable 12/08/2022 02:14 Indication: Tachycardia Procedure: AP portable chest Comparison: 12/20/2017 Findings: Heart size normal. No focal air space disease, pulmonary edema, pleural effusion or suspect ed pneumothorax. Impression: 1: No acute cardiopulmonary disease. Reviewed, dictated and finalized at location A. Impression: 1: No acute cardiopulmonary disease.
--- NOTE | 2022-12-08 01:44 | ECG_ITS ---
Measurements Intervals Gem Rate: 114 P: 56 IA: 112 QRS: 58 QRSD: 81 T: 18 QT: 324 QTc: 448 Interpretive Statements SINUS TACHYCARDIA WITH SHORT IA INTERVAL NONSPECIFIC ST-T WAVE ABNORMALITY- ANT/INF LEADS BASELINE ARTIFACT- I, AVR, AVL, AVF ABNORMAL ECG NO PREVIOUS ECG AVAILABLE FOR COMPARISON Electronically Signed On 12-08-2022 8:19:22 CDT by Misbah Neves D.O.
--- NOTE | 2022-12-08 01:47 | ED.GENADULT ---
HPI - General Adult General Chief complaint: Unspecified Stated complaint: Fatigue, body aches recent tubal ligation Time Seen by Provider: 12/08/22 01:27 History of Present Illness HPI narrative: This is a 27-year-old female presenting ED with chief complaint of not feeling well. Patient has been having subjective fevers body aches fatigue and nausea. Patient has dysuria. She denies chest pain difficulty breathing or abdominal pain. Patient had tubal ligation performed by Dr. Geovani Bright on November 29. Related Data Allergies Allergy/AdvReac Type Severity Reaction Status Date / Time No Known Allergies Allergy Verified 12/08/22 01:22 [facility] Past Medical History Medical History BMI 23.0-23.9, adult No active medical problems Family History Family History Mother Kidney failure Father No problems noted. Sibling No problems noted. 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 Gender identity (if verbalized by the patient): Female Spiritual care concerns: No Exam Narrative: APPEARANCE: No apparent distress. Head: atraumatic. EYES: EOMI, NOSE: Atraumatic NECK: Trachea midline RESPIRATORY: No increased rate of breathing , clear to auscultation CARDIOVASCULAR: RRR, ABDOMINAL: 2 well-healed surgical scars without erythema or tenderness. Abdomen is soft, Nontender, no guarding or rebound. no CVA tenderness MUSCULOSKELETAl: No obvious deformities NEURO: Alert. Moving 4/4 extremities SKIN:: Warm, dry. Normal color PSYCHIATRIC: Normal affect Course Vital Signs Vital signs: Vital Signs Temperature 99.3 F 12/08/22 01:19 Pulse Rate 130 H 12/08/22 01:19 Respiratory Rate 20 12/08/22 01:19 Blood Pressure 115/73 12/08/22 01:19 Pulse Oximetry 97 12/08/22 01:19 Oxygen Delivery Room Air 12/08/22 01:19 Temperature 99.3 F 12/08/22 01:19 Pulse Rate 130 H 12/08/22 01:19 Respiratory Rate 20 12/08/22 01:19 Blood Pressure 115/73 12/08/22 01:19 Pulse Oximetry 97 12/08/22 01:19 Oxygen Delivery Room Air 12/08/22 01:19 Medical Decision Making MDM Narrative Medical decision making narrative: -Presentation: 27-year-old female presenting with fatigue body aches and dysuria. Two weeks post tubal ligation. -DDX includes but is not limited to: Viral syndrome, pneumonia, UTI, surgical complication -Co-morbidities complicating care: recent tubal ligation -Social determinants of health: works for a [employer], lives alone -External Chart Review: review of operative notes -Hx from independent Sources: none -Independent interpretation of studies: chest x-ray normal. The CBC normal. Panel unremarkable. Urinalysis indicative of infection. Patient be started on Keflex. Independent EKG interpretation: Rhythm [sinus], Rate 114 [place] -[normal], [place] -[normal], QRS [narrow], QTC [normal], T waves -[negative for concerning inversions], ST Segments - [Negative for concerning elevations] Final interpretations: Sinus tachycardia -Discussion of Management/Consultants: none -Dx tests considered but not ordered: none -Procedures: none -Interventions: Motrin, Tylenol, 2 L normal saline,
[2022-12-08 02:09] LABS: Appearance Urine Cloudy (Clear); Bacteria Urine 4+ /hpf; Bilirubin Urine Negative (Negative); Color Urine Yellow (Yellow); Glucose Urine UA Negative (Negative); Ketones Urine Negative (Negative); Leukocyte Esterase Ur 2+ LEU/UL (Negative); Nitrate Urine Negative (Negative); Non Pathogenic Casts 0-2; Protein Urine Trace mg/dL (Negative); Specific Grav Ur 1.023 (1.001-1.035); Squamous Epithelial Cell Urine Moderate /hpf (Few); WBC Urine 51-100 /hpf
[2022-12-08 02:09] LABS: Basophils Percent Auto 0.3 % (0.2-1.2); Eosinophils Percent Auto 0.1 % (0-4.4); Hematocrit 37.9 % (37.0-47.0); Hemoglobin 12.4 g/dL (12.0-15.0); Immature Granulocyte Absolute 0.04 K/mm3 (0.00-0.031); Immature Granulocyte Percent A 0.4 % (0-0.5); Lymphocytes Absolute Auto 0.54 K/mm3 (0.9-3.2); Mean Corpuscular HGB Conc 32.7 g/dl (32-36); Mean Corpuscular Hemoglobin 28.1 pg (26-34); Mean Corpuscular Volume 85.7 fl (80-100); Mean Platelet Volume 11.4 fl (7.4-10.4); Monocytes Percent Auto 10.9 % (2.6-8.5); Neutrophils Absolute Auto 7.5 K/mm3 (1.3-6.7); Neutrophils Percent Auto 82.3 % (45.5-73.1); Platelet Count Result 225 k/mm3 (150-375); Red Blood Count 4.42 M/mm3 (4.2-5.4); Red Cell Distribution Width 13.8 % (11.5-14.5); White Blood Count 9.1 K/mm3 (4.5-10.0)
[2022-12-08] MEDS: SODIUM CHLORIDE 0.9% IV 2,000 ML 999 ML IV CONT (02:10)
[2022-12-08] MEDS: IBUPROFEN 400 MG TABLET 800 MG PO (02:11)
[2022-12-08] MEDS: ACETAMINOPHEN 500 MG TABLET 1000 MG PO (02:11)
[2022-12-08 02:25] LABS: Alanine Aminotransferase 57 U/L (6-35); Albumin Level 4.3 g/dL (3.5-5.1); Alkaline Phosphatase 139 U/L (38-126); Anion Gap 11 mmol/L (8-16); Aspartate Amino Transferase 48 U/L (14-36); Bilirubin,Total 0.6 mg/dL (0.2-1.3); Blood Urea Nitrogen 10 mg/dL (7-17); Calcium 8.6 mg/dL (8.4-10.2); Carbon Dioxide 18 mmol/L (22-30); Chloride 105 mmol/L (98-107); Estimated CRCL calculation 91 ml/min; Estimated Glomerular Filt Rate > 60; Glucose 107 mg/dL (65-110); Magnesium 1.8 mg/dL (1.6-2.3); Sodium 134 mmol/L (137-145)
[2022-12-08 02:31] LABS: Add Urine Microscopic? YES
[2022-12-08 03:44] LABS: Influenza A QL RT-PCR Negative (Negative); Influenza B QL RT-PCR Negative (Negative); RSV RNA, RT-PCR Negative (Negative); SARS-CoV-2 RNA PCR Negative (Negative)
== END 2022-12-08 03:21 | disposition home or self-care (01) ==
PROVIDERS: Emergency Provider Emergency Medicine; PCP Family Medicine
DX: N39.0 Urinary tract infection, site not specified (principal); Z20.822 Contact with and (suspected) exposure to COVID-19; Z98.890 Other specified postprocedural states; R00.0 Tachycardia, unspecified; R94.31 Abnormal electrocardiogram [ECG] [EKG]
CPT/HCPCS: 36415; 71045; 80053; 81001; 81025; 83735; 85025; 87086; 87088; 87637; 93005; 96360; 99283; A9270; J7030

== ENCOUNTER 2023-07-22 14:40 | Emergency (ER) | payer OTHER, SELFPAY ==
[2023-07-22 14:45] VITALS: BP 118/90; PULSE 101; RESP 16; TEMP 36.4; O2SAT 100
--- NOTE | 2023-07-22 15:28 | ED.GENADULT ---
HPI - General Adult General Chief complaint: Unspecified Stated complaint: needlestick Time Seen by Provider: 07/22/23 15:20 Source: patient Mode of arrival: ambulatory Limitations: no limitations History of Present Illness HPI narrative: Evita is a 28-year-old female patient presenting to the ER today for an accidental needlestick to the left index finger. She reports she was cleaning an [employer] and thought there was a Band-Aid on the floor she picked it up and had a small needle attached. When she showed as the picture appears to be a diabetic needle. Related Data Allergies Allergy/AdvReac Type Severity Reaction Status Date / Time No Known Allergies Allergy Verified 12/08/22 01:22 Review of Systems Review of Systems: Pertinent positives per HPI. Patient denies any fever, chills, rash, headache, visual changes, dizziness, cough, runny nose, sore throat, shortness of breath, chest pain, palpitations, nausea, vomiting, diarrhea, constipation, abdominal pain, or any urinary issues. PMFSH Past Medical History Medical History BMI 23.0-23.9, adult No active medical problems Family History Family History Mother Kidney failure Father No problems noted. Sibling No problems noted. 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 Gender identity (if verbalized by the patient): Female Spiritual care concerns: No Comments At the time of my signature, I reviewed and agree with the nursing past medical, surgical, social, and family history. There is no relevant family history pertinent to the patient complaint. Exam Narrative: General: Well-developed, well nourished, in no apparent distress Head: Normocephalic, atraumatic. Cardio: Regular rate and rhythm, s1 and s2 normal, no murmur appreciated. Resp: Clear to auscultation bilaterally, no rhonchi, rales, wheezing or rubs. Integumentary: [place], warm, and dry, very small puncture wound to the left volar index finger, slight redness, no obvious bleeding or discharge Course Course Emergency Course: Portions of this record may have been created with voice recognition software. Vital Signs Vital signs: Vital Signs Temperature 36.4 C L 07/22/23 14:45 Pulse Rate 101 H 07/22/23 14:45 Respiratory Rate 16 07/22/23 14:45 Blood Pressure 118/90 07/22/23 14:45 Pulse Oximetry 100 07/22/23 14:45 Temperature 36.4 C L 07/22/23 14:45 Pulse Rate 101 H 07/22/23 14:45 Respiratory Rate 16 07/22/23 14:45 Blood Pressure 118/90 07/22/23 14:45 Pulse Oximetry 100 07/22/23 14:45 Vital signs reviewed Medical Decision Making MDM Narrative Medical decision making narrative: At the time of visit patient is resting comfortably on the exam table. Patient appears to be nontoxic. Labs: Hepatitis B, hepatitis-C, and HIV labs pending PLAN: Tetanus status is up to date. Patient had accidental needlestick to the left index finger. Risk and benefits/ shared decision making of HIV prophylaxis was discussed with the patient and patient declines at this time. Discussed the patient has a very low risk of jaren HIV due to a finger needlestick, supportive measures were
[2023-07-22 15:54] VITALS: BP 116/78; PULSE 72; RESP 16; O2SAT 100
[2023-07-22 16:24] LABS: HIV 1/2 Ab P24 Ag Result Negative (Negative)
[2023-07-22 17:59] LABS: Hepatitis B Surface Anti Res Negative; Hepatitis C Virus Antibody Negative (Negative)
== END 2023-07-22 16:04 | disposition home or self-care (01) ==
LOC: ANHED 15:52
PROVIDERS: Emergency Provider Nurse Practitioner Family; PCP Family Medicine
DX: S61.231A Puncture wound without foreign body of left index finger without damage to nail, initial encounter (principal); W46.1XXA Contact with contaminated hypodermic needle, initial encounter; Y93.E9 Activity, other interior property and clothing maintenance
CPT/HCPCS: 36415; 86703; 86706; 86803; 99283; G0432

== ENCOUNTER 2023-12-21 15:09 | Emergency (ER) | payer OTHER, SELFPAY ==
[2023-12-21 15:15] VITALS: BP 134/97; PULSE 116; RESP 20; TEMP 38.1; O2SAT 100
--- NOTE | 2023-12-21 15:19 | ECG_ITS ---
Test Date: 2023-12-21 15:24:40 Measurements Intervals [place] Rate: 117 P: 71 [place]: 142 QRS: 83 QRSD: 82 T: -37 QT: 340 QTc: 476 Interpretive Statements SINUS TACHYCARDIA POSSIBLE RIGHT ATRIAL ENLARGEMENT [0.25mV P WAVE] NONSPECIFIC ST SEGMENT ABNORMALITY ABNORMAL ECG No previous ECG available for comparison Electronically Signed On 12-22-2023 15:26:48 CDT by Eliu Escobar M.D.
[2023-12-21 17:13] VITALS: BP 104/53; PULSE 99; RESP 16; TEMP 37.5; O2SAT 99
[2023-12-21] MEDS: SODIUM CHLORIDE 0.9% IV 1,000 ML 999 ML IV CONT (17:26)
[2023-12-21] MEDS: ONDANSETRON INJ 4 MG/2 ML VIAL IV PUSH (17:26)
[2023-12-21] MEDS: KETOROLAC 30 MG/ML VIAL (*BKC) IV PUSH (17:26)
[2023-12-21 17:51] VITALS: O2SAT 97
--- NOTE | 2023-12-21 17:56 | ED.GENADULT ---
HPI - General Adult General Chief complaint: Upper Respiratory Infection Stated complaint: via EMS codl/flu symptoms this morning Time Seen by Provider: 12/21/23 17:01 History of Present Illness HPI narrative: Patient is a 28-year-old female who presents ER with body aches and fever. She was exposed to her significant other who has COVID as well as her child has COVID. She tested herself today and was positive for COVID a and influenza B. She has body aches and has started having nausea and vomiting. No diarrhea. No chest discomfort. Related Data Allergies Allergy/AdvReac Type Severity Reaction Status Date / Time No Known Allergies Allergy Verified 12/21/23 15:20 Review of Systems Review of Systems: All systems reviewed & are unremarkable except as noted in HPI and below Constitutional: Constitutional: Reports chills and Reports fever(s) ENT: Reports system reviewed and no additional complaints, except as documented Cardiovascular: Cardiovascular: Reports no additional cardiovascular complaints Respiratory: Respiratory: Reports no additional respiratory complaints Gastrointestinal: Gastrointestinal: Reports no additional gastrointestinal complaints Musculoskeletal: Musculoskeletal: Reports myalgias, Denies arthralgias and Denies joint swelling PMFSH Past Medical History Medical History BMI 23.0-23.9, adult No active medical problems Family History Family History Mother Kidney failure Father No problems noted. Sibling No problems noted. 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 Gender identity (if verbalized by the patient): Female Spiritual care concerns: No Exam Narrative: GENERAL: ill-appearing, well-nourished, and in no acute distress. HEAD: Normocephalic, atraumatic. ENT: Mucous membranes moist. CHEST: Clear to auscultation. No respiratory distress. HEART: Tachycardic and regular. Normal peripheral pulses. ABDOMEN: Soft, nontender, nondistended. EXTREMITIES: Normal range of motion. No edema. SKIN: Warm, dry, no rash. NEURO: Alert and oriented x3. PSYCH: Normal mood an Course Course Emergency Course: IV fluid, Toradol 30 mg, Zofran 4 mg. Discharge home. Vital Signs Vital signs: Vital Signs Temperature 100.5 F H 12/21/23 15:15 Pulse Rate 116 H 12/21/23 15:15 Respiratory Rate 20 12/21/23 15:15 Blood Pressure 134/97 H 12/21/23 15:15 Pulse Oximetry 100 12/21/23 15:15 Oxygen Delivery Room Air 12/21/23 15:15 Temperature 99.5 F 12/21/23 17:13 Pulse Rate 99 12/21/23 17:13 Respiratory Rate 16 12/21/23 17:13 Blood Pressure 104/53 L 12/21/23 17:13 Pulse Oximetry 97 12/21/23 17:51 Oxygen Delivery Room Air 12/21/23 17:51 Medical Decision Making Vital Signs Vital Signs: Vital Signs Temperature 100.5 F H 12/21/23 15:15 Pulse Rate 116 H 12/21/23 15:15 Respiratory Rate 20 12/21/23 15:15 Blood Pressure 134/97 H 12/21/23 15:15 Pulse Oximetry 100 12/21/23 15:15 Oxygen Delivery Room Air 12/21/23 15:15 Temperature 99.5 F 12/21/23 17:13 Pulse Rate 99 12/21/23 17:13 Respiratory Rate 16 12/21/23 17:13 Blood Pressure 104/53 L
== END 2023-12-21 18:15 | disposition home or self-care (01) ==
PROVIDERS: Emergency Provider Emergency Medicine; PCP Family Medicine
DX: U07.1 COVID-19 (principal)
CPT/HCPCS: 93005; 96361; 96374; 96375; 99284; J1885; J2405; J7030

== ENCOUNTER 2025-04-05 15:58 | Emergency (ER) | payer SELFPAY ==
[2025-04-05 16:04] VITALS: BP 125/65; PULSE 96; RESP 18; TEMP 36.7; O2SAT 100
--- NOTE | 2025-04-05 18:35 | ED.FEMALEGU ---
HPI - Female Genitourinary General Chief complaint: Urogenital-Female <Helen Barahona PA-C - Last Filed: 04/05/25 19:39> Stated complaint: I think I have a UTI <Helen Barahona PA-C - Last Filed: 04/05/25 19:39> Time Seen by Provider: 04/05/25 18:35 <Helen Barahona PA-C - Last Filed: 04/05/25 19:39> Focused HPI: Patient is a 29-year-old female who presents the ED with concern for UTI. Patient reports having dysuria over the past couple of days. Reports hx of previous UTIs and states this feels similar. Denies frequency, urgency, hematuria. Denies abdominal pain, back/flank pain, N/V, fevers. Denies chance of . GENERAL: Well-appearing, well-nourished, and in no acute distress. HEAD: Normocephalic, atraumatic. CHEST: Clear to auscultation. ?No respiratory distress. HEART: Regular rate and rhythm.? NEURO: ?Alert and oriented x3. Patient screened in triage and initial orders placed.? ?Additional care and disposition to be based upon?diagnostic testing and treatment. <Helen Barahona PA-C - Last Filed: 04/05/25 19:39> Source: patient <PATRICIA Albarran Last Filed: 04/05/25 19:39> Mode of arrival: ambulatory <PATRICIA Albarran Last Filed: 04/05/25 19:39> Limitations: no limitations <PATRICIA Albarran Last Filed: 04/05/25 19:39> History of Present Illness HPI Narrative: I agree with the above HPI. <Phyllis Robles APRN - Last Filed: 04/05/25 22:35> Related Data Allergies/Adverse reactions: Allergies Allergy/AdvReac Type Severity Reaction Status Date / Time No Known Allergies Allergy Verified 12/21/23 15:20 <PATRICIA Albarran Last Filed: 04/05/25 19:39> Review of Systems Review of Systems: All systems reviewed & are unremarkable except as noted in HPI and below <Phyllis Robles APRN - Last Filed: 04/05/25 22:35> PMFSH Past Medical History Medical History: Medical History BMI 23.0-23.9, adult No active medical problems <Helen Barahona PA-C - Last Filed: 04/05/25 19:39> Family History Family History: Family History Mother Kidney failure Father No problems noted. Sibling No problems noted. <Helen Barahona PA-C - Last Filed: 04/05/25 19:39> Social History Social History: Social History Smoking status: Never smoker Second hand tobacco smoke exposure: Yes Alcohol intake: current Drinks per week: 1 Substance use: never Substance use type: does not use Lack of Transportation: YES Lack of Food: Never True Current Housing: I Have Housing Concerned About Future Housing: No Difficulty Paying Gas/Electric Bills: No Difficulty Paying for Meds: No Currently Unemployed: No Education: High School Diploma/GED Difficulty w/ Childcare or Family Care: No Living arrangements: with family Occupation/Education: unemployed 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 Gender identity (if verbalized by the patient): Female Spiritual care concerns: No <Helen Barahona PA-C - Last Filed: 04/05/25 19:39> Exam Narrative: GENERAL: Well appearing, well-nourished, non-toxic, in no acute distress. HEAD: Normocephalic, atraumatic. NECK: Supple. No adenopathy, no masses. RESPIRATORY: Airway patent, respirations nonlabored. Clear to auscultation bilaterally, no rales, rhonchi, wheezing. CARDIOVASCULAR: Regular rate and rhythm without murmurs, rubs, or gallops. Peripheral pulses 2+ and equal bilaterally. ABDOMINAL: Soft, nontender, nondistended, no hepatosplenomegaly. Normoactive BS. MUSCULOSKELETAL: Moves all extremities. Strength/ROM intact without gross deformities. SKIN: Warm, dry, normal color. No rashes. NEURO: A&O X3. Speech clear. Cranial nerves II-XII intact. No ataxic movements. PSYCHIATRIC: Appropriate mood and affect. Normal interaction. <Phyllis Robles, SAWMILLING OPERATOR - Last Filed: 04/05/25 22:35> Course Vital Signs Vital signs: Vital Signs Temperature 36.7 C 04/05/25 16:04 Pulse Rate 96 04/05/25 16:04 Respiratory Rate 18 04/05/25 16:04 Blood Pressure 125/65 04/05/25 16:04 Pulse Oximetry 100 04/05/25 16:04 Temperature 36.6 C 04/05/25 21:21 Pulse Rate 66 04/05/25 21:21 Respiratory Rate 14 04/05/25 21:21 Blood Pressure 130/78 04/05/25 21:21 Pulse Oximetry 99 04/05/25 21:21 Oxygen Delivery Room Air 04/05/25 21:21 <Helen Barahona PA-C - Last Filed: 04/05/25 19:39> Vital Signs Temperature 36.7 C 04/05/25 16:04 Pulse Rate 96 04/05/25 16:04 Respiratory Rate 18 04/05/25 16:04 Blood Pressure 125/65 04/05/25 16:04 Pulse Oximetry 100 04/05/25 16:04 Temperature 36.6 C 04/05/25 21:21 Pulse Rate 66 04/05/25 21:21 Respiratory Rate 14 04/05/25 21:21 Blood Pressure 130/78 04/05/25 21:21 Pulse Oximetry 99 04/05/25 21:21 Oxygen Delivery Room Air 04/05/25 21:21 <Phyllis Robles, SAWMILLING OPERATOR - Last Filed: 04/05/25 22:35> MDM - Female Genitourinary MDM Narrative Medical decision making narrative: MSE by EVGENY in triage. <Helen Barahona PA-C - Last Filed: 04/05/25 19:39> MSE by EVGENY in triage. Patient is a 29-year-old female who presents the ED with concern for UTI. Patient reports having dysuria over the past couple of days. Reports hx of previous UTIs and states this feels similar. Denies frequency, urgency, hematuria. Denies abdominal pain, back/flank pain, N/V, fevers. Denies chance of . Labs Ordered: UA Imaging Ordered: None necessary Medications Ordered: Diflucan p.o., pyridium p.o. Results: Patient's urinalysis did not indicate a urinary tract infection. Diagnosis: vaginal yeast infection, cystitis without infection Patient Education/Shared MDM: Results of lab work shared with patient. She will be given a dose of peridium and Diflucan here in the ER to see if this helps relieve her symptoms. Patient strongly advised to maintain hydration status upon discharge and follow-up with her PCP for further evaluation if her symptoms do not improve. She will be discharged home with a prescription for Diflucan and Pyridium. Strict return precautions provided. Patient verbalized understanding and is in agreement with plan. Vital signs stable at time of discharge. All questions answered. <Phyllis Robles APRN - Last Filed: 04/05/25 22:35> Differential Diagnosis Differential diagnosis: Likely urinary tract infection, cystitis and other (vaginal yeast infection) <Phyllis Robles APRN - Last Filed: 04/05/25 22:35> Lab Data Attestation: I reviewed the patient's lab results. <Phyllis Robles APRN - Last Filed: 04/05/25 22:35> Labs: Lab Results 04/05/25 04/05/25 Range/Units 19:40 21:21 Urine Color Yellow (Yellow) Urine Appearance Clear (Clear) Urine pH 6.0 (5.0-9.0) Ur Specific [place] 1.022 (1.001-1.035) Urine Protein Negative (Negative) mg/dL Urine Glucose (UA) Negative (Negative) mg/dL Urine Ketones Negative (Negative) mg/dL Ur Blood (Man) Negative (Negative) Urine Nitrate Negative (Negative) Urine Bilirubin Negative (Negative) Urine Urobilinogen 1.0 (<2.0) mg/dL Leukocyte Esterase Rfl Negative (Negative) PAULINE/UL POC Urine HCG, Qual Negative (Negative) <Helen Barahona PA-C - Last Filed: 04/05/25 19:39> Lab Results 04/05/25 04/05/25 Range/Units 19:40 21:21 Urine Color Yellow (Yellow) Urine Appearance Clear (Clear) Urine pH 6.0 (5.0-9.0) Ur Specific [place] 1.022 (1.001-1.035) Urine Protein Negative (Negative) mg/dL Urine Glucose (UA) Negative (Negative) mg/dL Urine Ketones Negative (Negative) mg/dL Ur Blood (Man) Negative (Negative) Urine Nitrate Negative (Negative) Urine Bilirubin Negative (Negative) Urine Urobilinogen 1.0 (<2.0) mg/dL Leukocyte Esterase Rfl Negative (Negative) PAULINE/UL POC Urine HCG, Qual Negative (Negative) <Phyllis Robles APRN - Last Filed: 04/05/25 22:35> Discharge Plan Discharge Clinical Impression: Vaginal yeast infection, Bladder irritation <Helen Barahona PA-C - Last Filed: 04/05/25 19:39> Patient Disposition: Home <PATRICIA Albarran Last Filed: 04/05/25 19:39> Condition: Stable <Helen Barahona PA-C - Last Filed: 04/05/25 19:39> Instructions: Antibiotic Form, Yeast Infection (ED) <PATRICIA Albarran Last Filed: 04/05/25 19:39> Additional Instructions: Please return to the ER with any worsening symptoms. Follow-up with your primary care provider for further evaluation if needed. Take all medications as prescribed, including regularly scheduled medications. Take your 2nd Diflucan in 3 days. Remember to drink lots of water. <Helen Barahona PA-C - Last Filed: 04/05/25 19:39> Patient Language: Luxembourgish <PATRICIA Albarran Last Filed: 04/05/25 19:39> Prescriptions: New phenazopyridine [Pyridium] 200 mg tablet 200 mg PO TID Qty: 6 0RF fluconazole 150 mg tablet 150 mg PO ONCE Qty: 1 0RF Rx Instructions: as a single dose No Action ibuprofen 800 mg tablet 800 mg PO TID PRN (Reason: pain) 7 Days Qty: 21 0RF acetaminophen 500 mg tablet 1,000 mg PO TID PRN (Reason: avelina) 7 Days Qty: 42 0RF cephalexin 500 mg capsule 500 mg PO Q12H Qty: 14 0RF hydrocodone-acetaminophen 5-325 mg tablet 1 tablet PO Q4H PRN (Reason: pain) Qty: 30 0RF ondansetron 4 mg tablet,disintegrating 4 mg PO Q6H PRN (Reason: nausea and vomiting) Qty: 10 0RF <Helen Barahona PA-C - Last Filed: 04/05/25 19:39> Follow-up/Referrals: Uli Olvera MD [Primary Care Provider, Family Practice] <Helen Barahona PA-C - Last Filed: 04/05/25 19:39> Time of Disposition: 22:35 <Helen Barahona PA-C - Last Filed: 04/05/25 19:39> 22:35 <Phyllis Robles APRN - Last Filed: 04/05/25 22:35>
[2025-04-05 18:38] VITALS: BP 128/78; PULSE 90; RESP 18; TEMP 36.6; O2SAT 99
[2025-04-05 19:40] VITALS: BP 114/59; PULSE 85; RESP 18; TEMP 36.8; O2SAT 100
[2025-04-05 20:37] LABS: Add Urine Microscopic? NO; Appearance Urine Clear (Clear); Glucose Urine UA Negative (Negative); Leukocyte Esterase Ur Negative LEU/UL (Negative); Nitrate Urine Negative (Negative); Specific Grav Ur 1.022 (1.001-1.035)
[2025-04-05 21:21] VITALS: BP 130/78; PULSE 66; RESP 14; TEMP 36.6; O2SAT 99
[2025-04-05 21:28] LABS: BEDSIDEPREGUCG Negative (Negative)
[2025-04-05] MEDS: PHENAZOPYRIDINE HCL 100 MG TABLET 200 MG PO (23:04)
[2025-04-05] MEDS: FLUCONAZOLE 150 MG TABLET PO (23:04)
[2025-04-05 23:06] VITALS: BP 128/74; PULSE 70; RESP 16; O2SAT 99
== END 2025-04-05 23:07 | disposition home or self-care (01) ==
PROVIDERS: Emergency Provider Registered Nurse; PCP Family Medicine
DX: B37.31 Acute candidiasis of vulva and vagina (principal); N32.89 Other specified disorders of bladder
CPT/HCPCS: 81003; 81025; 99283; A9270